=== PATIENT | female | born 1990 | race Caucasian/White ===

== ENCOUNTER 2017-04-17 22:53 | Inpatient (IN) | payer BC ==
[~2017-04-17] VITALS: Ht 167.6 cm; Wt 62.0 kg
[~2017-04-17 22:53] MED LIST: IBUP-1574 PO; PHEN-307 PO; [UNRECOGNIZED DRUG - CODE] PO
[2017-04-17 23:37] LABS: BASOPHILS % (AUTO) 0.3 % (0-1); EOSINOPHILS # (AUTO) 0.1 X10'3 (0-0.9); HEMOGLOBIN 13.2 g/dl (12.0-16.0); LYMPHOCYTES # (AUTO) 1.6 X10'3 (1.1-4.8); LYMPHOCYTES % (AUTO) 25.7 % (21-51); MEAN CORPUSCULAR HEMOGLOBIN 26.9 PG (27.0-31.0); MEAN CORPUSCULAR HGB CONC 32.3 % (33.0-36.5); MEAN CORPUSCULAR VOLUME 83.4 FL (78-98); MEAN PLATELET VOLUME 8.5 FL (7.4-10.4); MONOCYTES # (AUTO) 0.4 X10'3 (0-0.9); MONOCYTES % (AUTO) 6.9 % (2-12); NEUTROPHILS % (AUTO) 65.1 % (42-75); PLATELET COUNT 138 X10'3 (140-440); RED BLOOD COUNT 4.92 X10'6 (4.20-5.60); RED CELL DISTRIBUTION WIDTH 15.6 % (11.5-14.5); WHITE BLOOD COUNT 6.2 X10'3 (4.5-11.0)
[2017-04-17 23:56] LABS: URINE HCG NEGATIVE (NEG)
[2017-04-18 00:04] LABS: ACETAMINOPHEN 2.8 UG/ML (10-30); ALANINE AMINOTRANSFERASE 33 U/L (12-78); ALBUMIN 4.1 G/DL (3.4-5.0); ALKALINE PHOSPHATASE 91 IU/L (46-116); ANION GAP 9 (8-16); ASPARTATE AMINO TRANSFERASE 23 U/L (10-37); BILIRUBIN,TOTAL 0.3 MG/DL (0.1-1.0); BLOOD UREA NITROGEN 8 MG/DL (7-18); CALCIUM 8.9 MG/DL (8.5-10.1); CHLORIDE 110 MMOL/L (99-107); ETHANOL < 0.010 GM/DL (0.0-0.010); GLUCOSE 110 MG/DL (70-104); SODIUM 142 MMOL/L (135-145); TOTAL CARBON DIOXIDE 22.6 MMOL/L (24-32); TOTAL PROTEIN 8.1 G/DL (6.4-8.2); eGFR 66 ML/MIN
[2017-04-18 00:08] LABS: URINE AMPHETAMINE SCREEN NEGATIVE (Neg); URINE BARBITUATE SCREEN NEGATIVE (Neg); URINE BENZODIAZEPINES SCREEN POSITIVE (Neg); URINE METHADONE SCREEN NEGATIVE (Neg)
[2017-04-18 00:09] LABS: URINE CANNABINOID SCREEN NEGATIVE (Neg); URINE COCAINE SCREEN NEGATIVE (Neg); URINE OPIATE SCREEN POSITIVE (Neg); URINE PHENCYCLIDINE SCREEN NEGATIVE (Neg)
[2017-04-18 00:14] LABS: CLARITY,URINE CLOUDY (Clear); COLOR,URINE ORANGE (Yellow); UA COLLECTION TYPE STRAIGHT CATH
[2017-04-18 00:21] LABS: WBC,URINE 50-100 /HPF (0-4)
[2017-04-18 00:22] LABS: BACTERIA,URINE 2+ /HPF (Neg); MUCUS STRANDS MANY /LPF (Neg); RBC,URINE 50-100 /HPF (0-2); SQUAMOUS EPITHELIAL CELL,UR FEW /LPF (FEW); TRANSITIONAL EPI CELLS,URINE FEW /HPF; WBC CLUMPS,URINE FEW /HPF (NEGATIVE)
[2017-04-18] MEDS ORDERED: PENT100C9 PO (00:57)
[2017-04-18] MEDS ORDERED: CELE-193 PO (00:57)
[2017-04-18] MEDS ORDERED: LYR75C PO (00:57)
[2017-04-18] MEDS ORDERED: METO-292 PO (00:57)
[2017-04-18] MEDS ORDERED: MEMA5TAB PO (00:57)
[2017-04-18] MEDS ORDERED: LIDO700A32 TOP (00:57)
[2017-04-18] MEDS ORDERED: DIAZ10TA4 PO (00:57)
[2017-04-18] MEDS ORDERED: PSEU120T84 PO (00:57)
[2017-04-18] MEDS ORDERED: ESOM40CA PO (00:57)
[2017-04-18] MEDS ORDERED: HYOS0.3732 PO (00:57)
[2017-04-18] MEDS ORDERED: TOPI200T16 PO (00:57)
[2017-04-18] MEDS ORDERED: VALA500T37 PO (00:57)
[2017-04-18] MEDS ORDERED: CYCL-1 PO (00:57)
[2017-04-18] MEDS ORDERED: META800T87 PO (00:57)
[2017-04-18] MEDS ORDERED: FIORINAL PO (00:57)
[2017-04-18] MEDS ORDERED: NITR100C PO (00:57)
[2017-04-18] MEDS ORDERED: MELA3TAB PO (00:57)
[2017-04-18] MEDS ORDERED: normal saline 1000ml 1,000 ML IV ONE ×3 (01:15→11:40)
[2017-04-18] MEDS ORDERED: CefTRIAXone 2gm/NS 100ml IVPB 100 ML IV ONE (06:15)
[2017-04-18] MEDS ORDERED: normal saline 1000ML IV soln IVB ONE (07:25)
[2017-04-18 07:42] LABS: PARTIAL THROMBOPLASTIN TIME 22 SECONDS (22-32); PROTHROMBIN TIME 10.5 SECONDS (9.0-12.0)
[2017-04-18] MEDS ORDERED: levoTHYROXINE sod inj. 100mcg/5 ml vial IV ONE (08:35)
[2017-04-18] MEDS ORDERED: naloxone 2mg/2ml inj IV STA (10:59)
[2017-04-18 11:52] LABS: BASOPHILS # (AUTO) 0.1 X10'3 (0-0.2); BASOPHILS % (AUTO) 2.2 % (0-1); EOSINOPHILS # (AUTO) 0.1 X10'3 (0-0.9); EOSINOPHILS % (AUTO) 1.5 % (0-6); HEMOGLOBIN 12.3 g/dl (12.0-16.0); LYMPHOCYTES # (AUTO) 1.4 X10'3 (1.1-4.8); LYMPHOCYTES % (AUTO) 30.2 % (21-51); MEAN CORPUSCULAR HEMOGLOBIN 26.6 PG (27.0-31.0); MEAN CORPUSCULAR HGB CONC 31.6 % (33.0-36.5); MEAN CORPUSCULAR VOLUME 84.2 FL (78-98); MEAN PLATELET VOLUME 9.5 FL (7.4-10.4); MONOCYTES # (AUTO) 0.3 X10'3 (0-0.9); MONOCYTES % (AUTO) 5.5 % (2-12); NEUTROPHILS # (AUTO) 2.8 X10'3 (1.8-7.7); NEUTROPHILS % (AUTO) 60.6 % (42-75); PLATELET COUNT 118 X10'3 (140-440); RED BLOOD COUNT 4.63 X10'6 (4.20-5.60); WHITE BLOOD COUNT 4.6 X10'3 (4.5-11.0)
[2017-04-18 12:04] LABS: ALANINE AMINOTRANSFERASE 32 U/L (12-78); ALBUMIN 3.6 G/DL (3.4-5.0); ALBUMIN/GLOBULIN RATIO 1.1 (1.1-1.5); ALKALINE PHOSPHATASE 79 IU/L (46-116); ANION GAP 10 (8-16); ASPARTATE AMINO TRANSFERASE 25 U/L (10-37); BILIRUBIN,TOTAL 0.2 MG/DL (0.1-1.0); BLOOD UREA NITROGEN 6 MG/DL (7-18); BUN/CREATININE RATIO 7.5 (6.6-38.0); CALCIUM 8.5 MG/DL (8.5-10.1); CHLORIDE 115 MMOL/L (99-107); GLUCOSE 88 MG/DL (70-104); POTASSIUM 3.8 MMOL/L (3.5-5.1); SODIUM 146 MMOL/L (135-145); TOTAL CARBON DIOXIDE 20.9 MMOL/L (24-32); eGFR 85 ML/MIN
[2017-04-18 12:10] LABS: ABG BASE EXCESS -5.6 mmol/L (-2.0-3.0); ABG HCO3 18.8 mmol/L (22.0-26.0); ABG PCO2 (T) 33.1 mmHg (32.0-45.0); ABG PH (T) 7.372 (7.350-7.450); ALLEN'S TEST Positive; FCOHb 0.9 % (0.5-1.5); FMetHb 0.3 % (0.3-1.12); FO2Hb 96.8 % (94-100); RESPIRATORY RATE (OBSERVED) 16 b/min; TOTAL HEMOGLOBIN 11.6 G/dl (12.0-16.0)
[2017-04-18] MEDS: sodium bicarbonate (8.4%) inj. 150 MEQ in sodium chloride 0.45% 1,000 ML IV SCH ×2 (12:32→19:15)
[2017-04-18] MEDS ORDERED: ondansetron/PF 4mg/2ml inj IV PRN (12:35)
[2017-04-18] MEDS ORDERED: SUMAtriptan succ. 6 MG/0.5ml vial SQ ONE (12:50)
[2017-04-18 17:25] VITALS: BP 113/82
[2017-04-18 19:00] VITALS: BP 114/79
[2017-04-18 22:40] LABS: ABG BASE EXCESS -2.4 mmol/L (-2.0-3.0); ABG HCO3 21.7 mmol/L (22.0-26.0); ABG OXYGEN SATURATION 97.1 % (95-98); ABG PCO2 (T) 37.4 mmHg (32.0-45.0); ABG PH (T) 7.387 (7.350-7.450); ABG PO2 (T) 99.2 mmHg (83-108); ALLEN'S TEST Positive; FCOHb 0.4 % (0.5-1.5); FMetHb 0.3 % (0.3-1.12); FO2Hb 96.4 % (94-100); PATIENT TEMPERATURE 38.6; RESPIRATORY RATE (OBSERVED) 12 b/min; TOTAL HEMOGLOBIN 11.1 G/dl (12.0-16.0)
[2017-04-18 23:00] VITALS: BP 108/69
[2017-04-18 23:05] LABS: ALANINE AMINOTRANSFERASE 26 U/L (12-78); ALBUMIN 2.8 G/DL (3.4-5.0); ALKALINE PHOSPHATASE 68 IU/L (46-116); ANION GAP 11 (8-16); ASPARTATE AMINO TRANSFERASE 31 U/L (10-37); BILIRUBIN,TOTAL 0.4 MG/DL (0.1-1.0); BLOOD UREA NITROGEN 4 MG/DL (7-18); BUN/CREATININE RATIO 5.7 (6.6-38.0); CALCIUM 7.8 MG/DL (8.5-10.1); CHLORIDE 112 MMOL/L (99-107); CREATINE KINASE 573 U/L (26-192); GLUCOSE 85 MG/DL (70-104); POTASSIUM 3.7 MMOL/L (3.5-5.1); SODIUM 146 MMOL/L (135-145); TOTAL CARBON DIOXIDE 22.7 MMOL/L (24-32); TOTAL PROTEIN 5.7 G/DL (6.4-8.2); eGFR > 90 ML/MIN
[2017-04-19 03:00] VITALS: BP 104/70
[2017-04-19] MEDS: sodium bicarbonate (8.4%) inj. 150 MEQ in sodium chloride 0.45% 1,000 ML IV SCH (03:50)
[2017-04-19 05:28] LABS: BASOPHILS % (AUTO) 0.3 % (0-1); EOSINOPHILS % (AUTO) 0.8 % (0-6); HEMATOCRIT 33.8 % (35.0-45.0); HEMOGLOBIN 11.4 g/dl (12.0-16.0); LYMPHOCYTES % (AUTO) 17.1 % (21-51); MEAN CORPUSCULAR HEMOGLOBIN 27.9 PG (27.0-31.0); MEAN CORPUSCULAR HGB CONC 33.7 % (33.0-36.5); MEAN CORPUSCULAR VOLUME 82.8 FL (78-98); MEAN PLATELET VOLUME 8.5 FL (7.4-10.4); MONOCYTES # (AUTO) 0.4 X10'3 (0-0.9); MONOCYTES % (AUTO) 6.6 % (2-12); NEUTROPHILS # (AUTO) 4.4 X10'3 (1.8-7.7); NEUTROPHILS % (AUTO) 75.2 % (42-75); PLATELET COUNT 126 X10'3 (140-440); RED BLOOD COUNT 4.08 X10'6 (4.20-5.60); RED CELL DISTRIBUTION WIDTH 14.4 % (11.5-14.5); WHITE BLOOD COUNT 5.8 X10'3 (4.5-11.0)
[2017-04-19 05:30] VITALS: BP 103/68
[2017-04-19 05:47] LABS: ALANINE AMINOTRANSFERASE 26 U/L (12-78); ALBUMIN 2.8 G/DL (3.4-5.0); ALBUMIN/GLOBULIN RATIO 0.9 (1.1-1.5); ALKALINE PHOSPHATASE 68 IU/L (46-116); ANION GAP 10 (8-16); ASPARTATE AMINO TRANSFERASE 24 U/L (10-37); BILIRUBIN,TOTAL 0.4 MG/DL (0.1-1.0); BLOOD UREA NITROGEN 3 MG/DL (7-18); BUN/CREATININE RATIO 4.3 (6.6-38.0); CALCIUM 7.8 MG/DL (8.5-10.1); CHLORIDE 110 MMOL/L (99-107); GLUCOSE 90 MG/DL (70-104); POTASSIUM 3.1 MMOL/L (3.5-5.1); SODIUM 144 MMOL/L (135-145); TOTAL CARBON DIOXIDE 24.2 MMOL/L (24-32); TOTAL PROTEIN 5.8 G/DL (6.4-8.2); eGFR > 90 ML/MIN
[2017-04-19] MEDS ORDERED: cefTRIAXone 1g/NS 100ml IVPB 100 ML IV SCH (08:00)
[2017-04-19 08:16] LABS: TRIIODOTHYRONINE (T3) 99 ng/dL (71-180)
[2017-04-19 11:00] VITALS: BP 112/76
[2017-04-19] MEDS ORDERED: potassium Cl 20 mEq SR tablet PO PRN (13:50)
[2017-04-19] MEDS ORDERED: magnesium 2GM in 50ml NS 50 ML IV PRN (13:50)
[2017-04-19] MEDS ORDERED: magnesium 4gm in 100ml NS 100 ML IV PRN (13:50)
[2017-04-19] MEDS ORDERED: magnesium Cl slow-release 64mg tablet PO PRN (13:50)
[2017-04-19] MEDS ORDERED: potassium Cl 40MEQ/NS 500ml 500 ML IV PRN ×2 (13:50)
[2017-04-19] MEDS: potassium Cl 20 mEq SR tablet PO PRN ×2 (14:19→18:02)
[2017-04-19 15:00] VITALS: BP 103/67
[2017-04-19] MEDS ORDERED: methylPREDNISolone sod succ 125mg/2ml vial IV ONE (16:15)
== END 2017-04-19 19:25 | disposition home or self-care (01) | DRG 689 ==
LOC: ER 22:53 → ED HOLD 04-18 12:33 → PCU 3S 04-18 17:17
PROVIDERS: ADMIT Internal Medicine; ATTEND Internal Medicine
DX: N39.0 Urinary tract infection, site not specified (principal); G93.41 Metabolic encephalopathy; E87.2 Acidosis; F84.5 Asperger's syndrome; G43.909 Migraine, unspecified, not intractable, without status migrainosus; F99 Mental disorder, not otherwise specified; E03.9 Hypothyroidism, unspecified; Z88.1 Allergy status to other antibiotic agents; Z88.8 Allergy status to other drugs, medicaments and biological substances; Z88.6 Allergy status to analgesic agent; Z79.899 Other long term (current) drug therapy; Z79.01 Long term (current) use of anticoagulants; Z79.82 Long term (current) use of aspirin; Z87.442 Personal history of urinary calculi; Z56.0 Unemployment, unspecified
CPT/HCPCS: 36415; 36600; 70450; 71045; 80053; 80305; 80320; 80329; 81001; 81003; 81025; 82550; 82803; 83605; 84439; 84443; 84479; 84480; 85018; 85025; 85610; 85730; 87040; 87070; 93005; 96361; 96365; 96375; 99285; J0696; J2310; J2930; J7030

== ENCOUNTER 2017-12-21 11:21 | Emergency (ER) | payer BC ==
[~2017-12-21] VITALS: Ht 167.6 cm; Wt 72.7 kg
[~2017-12-21 11:21] MED LIST changes: +CELE-193 PO; +CYCL-1 PO; +DIAZ10TA4 PO; +ESOM40CA PO; +FIORINAL PO; +HYOS0.3732 PO; -IBUP-1574 PO; +LIDO700A32 TOP; +LYR75C PO; +MELA3TAB PO; +MEMA5TAB PO; +META800T87 PO; +PENT100C9 PO; -PHEN-307 PO; +TOPI200T16 PO; +VALA500T37 PO; -[UNRECOGNIZED DRUG - CODE] PO
[2017-12-21] MEDS ORDERED: diphenhydrAMINE 50 mg/ml inj IV ONE (11:55)
[2017-12-21] MEDS ORDERED: metoclopramide 5 mg/ml inj IV ONE (11:55)
[2017-12-21] MEDS ORDERED: normal saline 1000ml 1,000 ML IV ONE (11:55)
[2017-12-21] MEDS ORDERED: ketorolac tromethamine 15mg/ml inj. IV ONE (11:55)
[2017-12-21] MEDS ORDERED: fentaNYL/PF 50MCG/1 ML 2ML syringe IV ONE (12:45)
[2017-12-21] MEDS ORDERED: BUTA-281 PO (12:59)
[2017-12-21 13:29] VITALS: BP 105/63
== END 2017-12-21 13:30 | disposition home or self-care (01) ==
LOC: ER 11:22
DX: G43.909 Migraine, unspecified, not intractable, without status migrainosus (principal); Z56.0 Unemployment, unspecified; Z88.6 Allergy status to analgesic agent; Z88.1 Allergy status to other antibiotic agents; Z88.8 Allergy status to other drugs, medicaments and biological substances
CPT/HCPCS: 96374; 96375; 99284; J1200; J1885; J2765; J3010; J7030

== ENCOUNTER 2018-02-21 10:53 | Emergency (ER) | payer BC ==
[~2018-02-21] VITALS: Ht 167.6 cm; Wt 77.3 kg
[~2018-02-21 10:53] MED LIST changes: +BUTA-281 PO
[2018-02-21] MEDS ORDERED: diphenhydrAMINE 50 mg/ml inj IV ONE (11:20)
[2018-02-21] MEDS ORDERED: ketorolac trometh. 30mg/ml inj. IV ONE (11:20)
[2018-02-21] MEDS ORDERED: metoclopramide 5 mg/ml inj IV ONE (11:20)
[2018-02-21] MEDS ORDERED: normal saline 1000ml 1,000 ML IV ONE (11:20)
[2018-02-21] MEDS ORDERED: dexamethasone sod phosphate 10mg/ml inj IV STA (13:41)
[2018-02-21] MEDS ORDERED: aspirin/acetaminophen/caffeine tablet PO ONE (13:55)
[2018-02-21] MEDS ORDERED: haloperidol lactate 5mg/ml inj IM ONE (14:55)
[2018-02-21 15:08] VITALS: BP 115/78
== END 2018-02-21 15:22 | disposition home or self-care (01) ==
LOC: ER 10:53
DX: G43.909 Migraine, unspecified, not intractable, without status migrainosus (principal); Z88.1 Allergy status to other antibiotic agents; Z88.8 Allergy status to other drugs, medicaments and biological substances; Z79.899 Other long term (current) drug therapy; Z56.0 Unemployment, unspecified
CPT/HCPCS: 96372; 96374; 96375; 99283; J1100; J1200; J1630; J1885; J2765

== ENCOUNTER 2018-10-21 09:55 | Emergency (ER) | payer BC, SELFPAY ==
[~2018-10-21] VITALS: Ht 167.6 cm; Wt 77.0 kg
[~2018-10-21 09:55] MED LIST changes: -MELA3TAB PO; +MELA3TAB64 PO
[2018-10-21 10:18] VITALS: BP 135/93
[2018-10-21] MEDS ORDERED: ketorolac tromethamine 15mg/ml inj. IV ONE (11:10)
[2018-10-21] MEDS ORDERED: normal saline 1000ML IV soln IVB ONE (11:10)
[2018-10-21] MEDS ORDERED: ondansetron/PF 4mg/2ml inj IV ONE (11:10)
[2018-10-21] MEDS ORDERED: methylPREDNISolone sod succ 125mg/2ml vial IV ONE (11:10)
[2018-10-21] MEDS ORDERED: diphenhydrAMINE 50 mg/ml inj IV ONE (12:35)
[2018-10-21] MEDS ORDERED: metoclopramide 5 mg/ml inj IV ONE (12:35)
[2018-10-21] MEDS ORDERED: LORazepam 2 mg/ml vial IV ONE (13:30)
== END 2018-10-21 14:43 | disposition home or self-care (01) ==
LOC: ER 09:56
DX: G43.909 Migraine, unspecified, not intractable, without status migrainosus (principal); R11.2 Nausea with vomiting, unspecified; Z87.442 Personal history of urinary calculi; Z56.0 Unemployment, unspecified; Z88.1 Allergy status to other antibiotic agents; Z88.8 Allergy status to other drugs, medicaments and biological substances; Z79.899 Other long term (current) drug therapy
CPT/HCPCS: 96361; 96374; 96375; 99283; J1200; J1885; J2060; J2405; J2765; J2930; J7030

== ENCOUNTER 2018-10-25 08:34 | Emergency (ER) | payer BC, SELFPAY ==
[~2018-10-25] VITALS: Ht 167.6 cm; Wt 72.0 kg
[2018-10-25] MEDS ORDERED: LORazepam 2 mg/ml vial IV ONE (09:00)
[2018-10-25] MEDS ORDERED: normal saline 1000ML IV soln IVB ONE (09:00)
[2018-10-25] MEDS ORDERED: diphenhydrAMINE 50 mg/ml inj IV ONE (09:00)
[2018-10-25] MEDS ORDERED: metoclopramide 5 mg/ml inj IV ONE (09:00)
[2018-10-25] MEDS ORDERED: ketorolac tromethamine 15mg/ml inj. IV ONE (09:00)
[2018-10-25] MEDS ORDERED: morphine 4 MG/ML inj SYRINge IV ONE (11:15)
[2018-10-25 11:36] VITALS: BP 97/57
[2018-10-25] MEDS ORDERED: methylPREDNISolone sod succ 125mg/2ml vial IV ONE (11:55)
== END 2018-10-25 12:07 | disposition home or self-care (01) ==
LOC: ER 08:34
DX: G43.909 Migraine, unspecified, not intractable, without status migrainosus (principal); M54.2 Cervicalgia; Z87.442 Personal history of urinary calculi; Z56.0 Unemployment, unspecified; Z88.1 Allergy status to other antibiotic agents; Z88.8 Allergy status to other drugs, medicaments and biological substances; Z79.899 Other long term (current) drug therapy
CPT/HCPCS: 96374; 96375; 99283; J1200; J1885; J2060; J2270; J2765; J2930; J7030

== ENCOUNTER 2018-12-01 15:37 | Emergency (ER) | payer BC, SELFPAY ==
[~2018-12-01] VITALS: Ht 167.6 cm; Wt 80.0 kg
[2018-12-01] MEDS ORDERED: dexamethasone sod phosphate 10mg/ml inj IV STA (16:28)
[2018-12-01] MEDS ORDERED: metoclopramide 5 mg/ml inj IV ONE (16:30)
[2018-12-01] MEDS ORDERED: LORazepam 2 mg/ml vial IV ONE (16:30)
[2018-12-01] MEDS ORDERED: normal saline 1000ML IV soln IVB ONE (16:30)
[2018-12-01] MEDS ORDERED: ketorolac trometh. 30mg/ml inj. IV ONE (16:30)
[2018-12-01 17:41] VITALS: BP 108/64
== END 2018-12-01 17:49 | disposition home or self-care (01) ==
LOC: ER 15:37
DX: G43.909 Migraine, unspecified, not intractable, without status migrainosus (principal); Z87.442 Personal history of urinary calculi; Z56.0 Unemployment, unspecified; Z88.1 Allergy status to other antibiotic agents; Z88.8 Allergy status to other drugs, medicaments and biological substances; Z79.899 Other long term (current) drug therapy
CPT/HCPCS: 96374; 96375; 99283; J1100; J1885; J2060; J2765; J7030